=== PATIENT | female | born 1985 | race Hispanic/Latino ===

== ENCOUNTER 2017-11-03 02:48 | Emergency (ER) | payer SELFPAY ==
[2017-11-03] MEDS ORDERED: ONDANSETRON 4 MG/2 ML VIAL ONE (03:26)
[2017-11-03] MEDS ORDERED: FAMOTIDINE 20 MG/2 ML VIAL IV ONE (03:26)
[2017-11-03] MEDS ORDERED: NA CHLORIDE 0.9% 1,000 ML ONE (03:27)
[2017-11-03 03:57] LABS: Absolute Lymphocytes (CBC) 0.8 K/uL (0.7-4.9); Absolute Monocytes 0.6 K/uL (0.1-1.3); Absolute Neutrophil 10.7 K/uL (1.8-8.0); Basophils % 0.2 % (0-1.3); Eosinophils % 0.3 % (0-4.4); Lymphocytes % 6.6 % (15.3-44.8); MCH 25.7 pg (27.0-35.0); MCV 79.4 fL (80-100); MPV 8.4 fL (7.6-11.3); Monocytes % 4.9 % (3.3-12.3); RBC Red Blood Cell Count 5.92 M/uL (3.86-4.86)
[2017-11-03 04:09] LABS: Albumin 3.9 g/dL (3.4-5.0); Bilirubin Direct 0.2 mg/dL (0-0.2); Bilirubin Total 1.1 mg/dL (0.2-1.0); Potassium 3.6 mmol/L (3.5-5.1)
[2017-11-03 04:13] LABS: Urine Bacteria 20-50 /HPF (<20); Urine Culture Reflex Order REFLEXED; Urine Mucus MOD /HPF (NONE SEEN); Urine RBC <5 /HPF (NONE SEEN)
[2017-11-03 04:14] LABS: Blood Morphology Comment NOT SEEN (NOT SEEN); Platelet Estimate ADEQ
[2017-11-03 04:20] LABS: Urine Blood TRACE (NEG); Urine Glucose NEGATIVE (NEG); Urine Protein NEGATIVE (NEG); Urine Specific Gravity 1.025 (1.005-1.030)
--- NOTE | 2017-11-03 05:59 | ER ---
Nurse's Notes [facility] Name: Augustina Parada Age: 32 yrs Sex: Female : 1985 Arrival Date: 11/03/2017 Time: 02:49 Bed 17 Private MD: Diagnosis: Vomiting;Gastro-esophageal laceration-hemorrhage syndrome Presentation: 11/03 02:58 Presenting complaint: Patient states: She started having abdominal pain and several ea episodes of bright red vomiting that started at 0000. Transition of care: patient was not received from another setting of care. Onset of symptoms was November 03, 2017. Risk Assessment: Do you want to hurt yourself or someone else? Patient reports no desire to harm self or others. Initial Sepsis Screen: Does the patient meet any 2 criteria? No. Patient's initial sepsis screen is negative. Does the patient have a suspected source of infection? No. Patient's initial sepsis screen is negative. Care prior to arrival: None. 02:58 Method Of Arrival: Ambulatory ea 02:58 Acuity: JASMYNE 2 ea Triage Assessment: 03:09 General: Appears uncomfortable, Behavior is calm, cooperative, appropriate for age. ea Pain: Complains of pain in epigastric area Pain currently is 8 out of 10 on a pain scale. Quality of pain is described as aching. EENT: No signs and/or symptoms were reported regarding the EENT system. Neuro: Level of Consciousness is awake, alert, obeys commands, Oriented to person, place, time, situation. Cardiovascular: Heart tones S1 S2 present Patient's skin is warm and dry. Respiratory: Airway is patent Respiratory effort is even, unlabored, Respiratory pattern is regular, symmetrical, Breath sounds are clear bilaterally. GI: Abdomen is non-distended, Bowel sounds present X 4 quads. Abd is soft X 4 quads Abdomen is tender to palpation in epigastric area. : No signs and/or symptoms were reported regarding the genitourinary system. Derm: Skin is dry, Skin is normal, Skin temperature is warm. Musculoskeletal: Circulation, motion, and sensation intact. 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 - Social history:: Smoking status: Patient/guardian denies using tobacco. - Ebola Screening: : No symptoms or risks identified at this time. Screenin:02 Abuse screen: Denies threats or abuse. Nutritional screening: No deficits noted. ea Tuberculosis screening: No symptoms or risk factors identified. Fall Risk None identified. Assessment: 03:42 Reassessment: Patient and/or family updated on plan of care and expected duration. Pain ea level reassessed. Patient is alert, oriented x 3, equal unlabored respirations, skin warm/dry/pink. 04:13 Reassessment: Patient and/or family updated on plan of care and expected duration. Pain ea level reassessed. Patient is alert, oriented x 3, equal unlabored respirations, skin warm/dry/pink. 05:42 Reassessment: Patient and/or family updated on plan of care and expected duration. Pain ea level reassessed. Patient is alert, oriented x 3, equal unlabored respirations, skin warm/dry/pink. Patient states symptoms have improved. 06:16 Reassessment: Patient and/or family updated on plan of care and expected duration. Pain ea level reassessed. Patient is alert, oriented x 3, equal unlabored respirations, skin warm/dry/pink. Discharge instructions given to patient, verbalized the understanding of instruction. Patient states symptoms have improved. Vital Signs: 03:01 BP 114 / 70; Pulse 102; Resp 18 S; Temp 98.7(O); Pulse Ox 97% on R/A; Weight 67.13 kg; ea Height 155 in. (393.70 cm); Pain 8/10; 04:14 BP 105 / 78; Pulse 89; Resp 18; Pulse Ox 99% on R/A; Pain 5/10; ea 05:18 BP 104 / 61; Pulse 75; Resp 18; Pulse Ox 97% on R/A; ea 06:18 BP 100 / 71; Pulse 78; Resp 18; Temp 97.2; Pulse Ox 98% on R/A; Pain 3/10; ea 03:01 Body Mass Index 4.33 (67.13 kg, 393.70 cm) ea ED Course: 02:49 Patient arrived in ED. am2 02:51 Vasiliy Art MD is Attending Physician. 02:58 Chantal Huerta, RN is Primary Nurse. ea 03:00 Triage completed. ea 03:00 Arm band placed on right wrist. Patient placed in an exam room, on a stretcher, on ea pulse oximetry. 03:03 Patient has correct armband on for positive identification. Bed in low position. Call ea light in reach. Side rails up X2. 03:43 Inserted saline lock: 22 gauge in right antecubital area, using aseptic technique. ea Blood collected. 04:00 Radiology exam delayed due to test not completed at this time. 04:45 CT completed. Patient tolerated procedure well. Patient moved to CT via wheelchair. Patient moved back from CT. 04:47 CT Stone Protocol In Process Unspecified. EDNM 06:17 No provider procedures requiring assistance completed. IV discontinued, intact, ea bleeding controlled, No redness/swelling at site. Pressure dressing applied. Administered Medications: 03:41 Drug: Zofran 4 mg Route: IVP; Site: right antecubital; ea 04:17 Follow up: Response: No adverse reaction; Marked relief of symptoms ea 03:41 Drug: Pepcid 20 mg Route: IVP; Site: right antecubital; ea 04:17 Follow up: Response: No adverse reaction ea 03:42 Drug: NS 0.9% 1000 ml Route: IV; Rate: 1 bolus; Site: right antecubital; ea 05:00 Follow up: Response: No adverse reaction; IV Status: Completed infusion; IV Intake: ea 1000ml Intake: 05:00 IV: 1000ml; Total: 1000ml. ea Outcome: 05:58 Discharge ordered by . 06:17 Discharged to home ambulatory, with family. ea 06:17 Condition: improved 06:17 Discharge instructions given to patient, Instructed on discharge instructions, follow up and referral plans. medication usage, Demonstrated understanding of instructions, follow-up care, medications, Prescriptions given X 1. 06:27 Patient left the ED. ea Signatures: Dispatcher [employer] EDNM Quique Loaiza Maribel Horowitz am2 Chantal Huerta, SHARON RN Vasiliy White MD MD
--- NOTE | 2017-11-03 05:59 | EDPHYS ---
Physician Documentation [facility] Name: Augustina Parada Age: 32 yrs Sex: Female : 1985 Arrival Date: 11/03/2017 Time: 02:49 Bed 17 Private MD: ED Physician Vasiliy Art HPI: 11/03 05:54 This 32 yrs old Female presents to ER via Ambulatory with complaints of gs Abdominal Pain, vomiting blood. 05:54 The patient presents to the emergency department with vomiting, that is continuous, gs described as initially normal emesis after several episodes had blood tinged emesis. Onset: The symptoms/episode began/occurred acutely, yesterday. Possible causes: unknown. The symptoms are aggravated by nothing. The symptoms are alleviated by nothing. Associated signs and symptoms: Pertinent positives: abdominal pain, Pertinent negatives: fever. Severity of symptoms: At their worst the symptoms were severe in the emergency department the symptoms have improved markedly. The patient has not experienced similar symptoms in the past. The patient has not recently seen a physician. MANAGER SPEECH: 03:01 LMP 10/21/2017 ea Historical: - Allergies: 03:01 No Known Allergies; ea - Home Meds: 03:01 control implant [Active]; ea - PMHx: 03:01 None; ea - PSHx: 03:01 None; ea - Immunization history:: Adult Immunizations up to date. - Social history:: Smoking status: Patient/guardian denies using tobacco. - Ebola Screening: : No symptoms or risks identified at this time. ROS: 05:54 All other systems are negative. gs Exam: 05:54 Head/Face: Normocephalic, atraumatic. Eyes: Pupils equal round and reactive to light, gs extra-ocular motions intact. Lids and lashes normal. Conjunctiva and sclera are non-icteric and not injected. Cornea within normal limits. Periorbital areas with no swelling, redness, or edema. ENT: Nares patent. No nasal discharge, no septal abnormalities noted. Tympanic membranes are normal and external auditory canals are clear. Oropharynx with no redness, swelling, or masses, exudates, or evidence of obstruction, uvula midline. Mucous membranes moist. Neck: Trachea midline, no thyromegaly or masses palpated, and no cervical lymphadenopathy. Supple, full range of motion without nuchal rigidity, or vertebral point tenderness. No Meningismus. Chest/axilla: Normal chest wall appearance and motion. Nontender with no deformity. No lesions are appreciated. Cardiovascular: Regular rate and rhythm with a normal S1 and S2. No gallops, murmurs, or rubs. Normal PMI, no JVD. No pulse deficits. Respiratory: Lungs have equal breath sounds bilaterally, clear to auscultation and percussion. No rales, rhonchi or wheezes noted. No increased work of breathing, no retractions or nasal flaring. Back: No spinal tenderness. No costovertebral tenderness. Full range of motion. Skin: Warm, dry with normal turgor. Normal color with no rashes, no lesions, and no evidence of cellulitis. MS/ Extremity: Pulses equal, no cyanosis. Neurovascular intact. Full, normal range of motion. Neuro: Awake and alert, GCS 15, oriented to person, place, time, and situation. Cranial nerves II-XII grossly intact. Motor strength 5/5 in all extremities. Sensory grossly intact. Cerebellar exam normal. Normal gait. 05:54 Constitutional: The patient appears in no acute distress, alert, awake. 05:54 Abdomen/GI: Palpation: moderate abdominal tenderness, in the right upper quadrant and left upper quadrant, rebound tenderness, is not appreciated. Vital Signs: 03:01 BP 114 / 70; Pulse 102; Resp 18 S; Temp 98.7(O); Pulse Ox 97% on R/A; Weight 67.13 kg; ea Height 155 in. (393.70 cm); Pain 8/10; 04:14 BP 105 / 78; Pulse 89; Resp 18; Pulse Ox 99% on R/A; Pain 5/10; ea 05:18 BP 104 / 61; Pulse 75; Resp 18; Pulse Ox 97% on R/A; ea 06:18 BP 100 / 71; Pulse 78; Resp 18; Temp 97.2; Pulse Ox 98% on R/A; Pain 3/10; ea 03:01 Body Mass Index 4.33 (67.13 kg, 393.70 cm) ea MDM: 03:13 Patient medically screened. 05:54 Differential diagnosis: Nonspecific abd pain, gastritis, cholecystitis, pancreatitis, gs viral gastroenteritis, gastroenteritis. Differential diagnosis: fay sevilla tear. Data reviewed: vital signs, nurses notes. Response to treatment: and as a result, I will discharge patient. 11/03 03:18 Order name: Basic Metabolic Panel; Complete Time: 04:15 11/03 03:18 Order name: CBC with Diff; Complete Time: 04:15 11/03 03:18 Order name: Hepatic Function; Complete Time: 04:15 11/03 03:18 Order name: Lipase; Complete Time: 04:15 11/03 03:18 Order name: Urine Microscopic Only; Complete Time: 04:15 11/03 03:48 Order name: Urine Dipstick--Ancillary (enter results); Complete Time: 04:31 [facility] 11/03 03:18 Order name: Urine Test (obtain specimen); Complete Time: 03:32 11/03 03:18 Order name: CT Stone Protocol 11/03 03:48 Order name: Urine --Ancillary (enter results); Complete Time: 04:31 [facility] 11/03 04:09 Order name: Manual Differential; Complete Time: 04:15 [facility] 11/03 04:15 Order name: Urine Culture [facility] 11/03 03:18 Order name: IV Saline Lock; Complete Time: 03:42 11/03 03:18 Order name: Labs collected and sent; Complete Time: 03:42 11/03 03:18 Order name: Urine Dipstick-Ancillary (obtain specimen); Complete Time: 03:33 gs Administered Medications: 03:41 Drug: Zofran 4 mg Route: IVP; Site: right antecubital; ea 04:17 Follow up: Response: No adverse reaction; Marked relief of symptoms ea 03:41 Drug: Pepcid 20 mg Route: IVP; Site: right antecubital; ea 04:17 Follow up: Response: No adverse reaction ea 03:42 Drug: NS 0.9% 1000 ml Route: IV; Rate: 1 bolus; Site: right antecubital; ea 05:00 Follow up: Response: No adverse reaction; IV Status: Completed infusion; IV Intake: ea 1000ml Disposition: 11/03/17 05:58 Discharged to Home. Impression: Vomiting, Gastro-esophageal laceration-hemorrhage syndrome. - Condition is Stable. - Discharge Instructions: Fay-Sevilla Syndrome, Nausea and Vomiting. - Prescriptions for Zofran 4 mg Oral Tablet - take 1 tablet by ORAL route every 12 hours As needed; 10 tablet. Pepcid 20 mg Oral Tablet - take 1 tablet by ORAL route once daily; 20 tablet. - Medication Reconciliation Form, Thank You Letter, Antibiotic Education, Prescription Opioid Use form. - Follow up: Private Physician; When: 2 - 3 days; Reason: Re-evaluation by your physician. Signatures: Dispatcher [employer] EDChantal Fuller RN RN ea Starr, Gregory, MD MD gs Corrections: (The following items were deleted from the chart) 06:27 05:58 11/03/2017 05:58 Discharged to Home. Impression: Vomiting; Gastro-esophageal ea laceration-hemorrhage syndrome. Condition is Stable. Forms are Medication Reconciliation Form, Thank You Letter, Antibiotic Education, Prescription Opioid Use. Follow up: Private Physician; When: 2 - 3 days; Reason: Re-evaluation by your physician. gs
--- NOTE | 2017-11-03 07:46 | RAD REPORT ---
EXAM DESCRIPTION: CT - Stone Protocol - 11/03/2017 6:45 am CLINICAL HISTORY: Abdominal pain, epigastric pain, hematemesis. A preliminary written report was provided at the time of the study, and the report was reviewed prio r to final dictation. COMPARISON: None. TECHNIQUE: Axial 5 mm thick images were obtained without oral or IV contrast. The [id number] span s the entirety of the system including uppermost abdomen and lung bases. All CT scans are performed using dose optimization technique as appropriate and may include automated exposure control or mA/KV adjustment according to patient size. FINDINGS: No hydronephrosis is present and no obstructing ureteral calculi. No suspicious renal mass es. Isodense masses and pyelonephritis are not excluded on a stone protocol CT scan. Partially filled urinary bladder shows no suspicious finding. No ovarian abnormality or fallopian tube dilatation. The uterus is enlarged measuring 11 x 9 x 9 cm. This appears to be secondary to a dominant 8-9 centimeter anterior fundal mass. Additional small fibr oids are evident as well. No central hypodensity to suspect gravid uterus. Detail is limited in the a bsence of contrast. Follow-up sonography could be performed. This is not felt to be a finding related to the acute clinical presentation. Imaged portions of the liver, spleen and pancreas show no suspicious findings on non-contrast imaging . Gallbladder is contracted. Upper abdominal detail is limited by motion. No biliary tree dilatation. No significant adrenal finding. No gastric dilatation or wall thickening. No acute large or small bowel abnormality identifiable. Brittany endix is normal. No mass or bulky lymphadenopathy. Patient has a 3 centimeter wide neck fat only umbilical hernia. No free air, free fluid or inflammatory stranding. No significant bony abnormality. IMPRESSION: Noncontrast CT abdomen and pelvis imaging shows no suspicious or significant finding to explain patient's hematemesis and epigastric pain pattern. Enlarged lobulated uterus believed to contain a large 8- 9 cm fibroid. This uterine enlargement is ve ry likely unrelated to the acute clinical presentation. Follow-up sonography can be performed as victoriano anted. Isodense masses and pyelonephritis are not excluded on stone protocol technique.
== END 2017-11-03 06:27 | disposition home or self-care (01) ==
LOC: ER 02:48
DX: K22.6 Gastro-esophageal laceration-hemorrhage syndrome (principal)
CPT/HCPCS: 36415; 74176; 76377; 80048; 80076; 81003; 81015; 81025; 83690; 85025; 87086; 87088; 96361; 96374; 96375; 99284; J2405; J7030